=== PATIENT | female | born 1990 | race Caucasian/White ===

== ENCOUNTER → 2022-11-23 | Outpatient (CLI) | payer OTHER ==
--- NOTE | 2022-11-23 22:08 | MR ---
EXAMINATION TYPE: MR knee RT wo con DATE OF EXAM: 11/23/2022 COMPARISON: NONE HISTORY: Right knee outer pain and swelling for 2 months after slipped and fall injury. Sprain injury , internal derangement, meniscal derangement, effusion all per order. TECHNIQUE: Multiplanar, multisequence images of the knee is performed without IV contrast. FINDINGS: Exam is suboptimal as there is motion artifact degradation. MEDIAL MENISCUS: Anterior and posterior horns are intact without tear. LATERAL MENISCUS: Anterior and posterior horns are intact without tear. CRUCIATE LIGAMENTS: The posterior cruciate ligament is intact and unremarkable. Anterior cruciate lig ament fibers remain intact with increased signal and surrounding fluid noted. COLLATERAL LIGAMENTS: The medial collateral ligament and lateral collateral ligament complex are inta ct and unremarkable. EXTENSOR MECHANISM: Visualized quadriceps and patellar tendons are intact. EFFUSION: Small size suprapatellar joint effusion. POPLITEAL CYST: No popliteal/condon cyst. TRICOMPARTMENT SPACES: Mild tricompartment joint space loss. No significant spurring. CARTILAGE: Tricompartment articular cartilage is preserved. BONE MARROW SIGNAL INTENSITY: Overall heterogeneity suggestive of red marrow reconversion. No signifi cant focal increased T2 signal or edema. OTHER: Focal subcutaneous edema anterior infrapatellar region. IMPRESSION: 1. Partial tearing and/or sprain injury of the ACL. 2. Mild tricompartment degenerative changes. 3. Small-size suprapatellar joint effusion.
== END | disposition home or self-care (01) ==
LOC: RADMRIMAIN 14:28
PROVIDERS: ATTEND Orthopaedic Surgery
DX: S83.512A Sprain of anterior cruciate ligament of left knee, initial encounter (principal); M17.11 Unilateral primary osteoarthritis, right knee; M25.461 Effusion, right knee; Z68.43 Body mass index [BMI] 50.0-59.9, adult